=== PATIENT | male | born 1960 | race Caucasian/White ===

== ENCOUNTER 2025-02-23 02:50 | Day surgery (SDC) | payer MEDICAID, SELFPAY ==
[2025-02-14 14:35] VITALS: BMI 30.7
--- NOTE | 2025-02-14 14:42 | PC.NURSE ---
Report to the Outpatient Waiting Room, entrance under the green pavilion located off [facility], at time _0900_ on date _[id number]_. Planned Procedure Time: _1100_.? Time changes happen often and if your time is changed the preop area will call you the afternoon before. - You and your visitor will be asked to self-screen and do not enter if you have any COVID symptoms. Please call surgeon if you need to reschedule. - A mask is optional within the hospital at this time. May have clear liquids (water, carbonated beverages, clear teas, apple juice) until 3am prior to surgery with a maximum of 20 ounces. Nothing to drink after 3am. - No food from midnight until time of surgery and no smoking, or chewing tobacco (or any form of nicotine). No chewing gum, candy or mints. Take only the following medications with a SIP of water on the morning of surgery: ___None____ DO NOT STOP ANY OF YOUR OTHER PRESCRIPTION MEDICATIONS PRIOR TO SURGERY EXCEPT THE FOLLOWING Hold all vitamins and supplements for 3 days per anesthesiologist. Medications to discontinue per physician Date to take last dose Please no make-up, nail azeri, hairspray, perfume, deodorant, or body powder the day of surgery.? No jewelry (including any body piercings) or valuables the day of surgery, leave them at home.? Please take a shower or bath the night before, or the morning of, surgery with an antibacterial soap.? Wear comfortable, loose fitting clothing.? - Jewelry must be removed prior to entering the operating room.? Rings and piercings that are not removed may be cut off. - The hospital will not accept responsibility for valuables.? - Please leave all valuables, including medications, at home the day of surgery. If you are going home after surgery, a licensed wheelchair van driver must drive you home.? - NO public transportation without another adult if you receive anesthesia. - We recommend that an adult stay with you for 24 hours following discharge. - We also recommend that you do not drive, make important decision, drink alcoholic beverages, or take any drugs that were not prescribed by your health care provider for at least 24 hours after your discharge time. Follow any additional instructions given to you from your surgeon. Telephone instructions given to __Phan__and asked if any additional questions and then verbalized understanding. Patient advised to call surgeon office or pre surgery nurse liaison [phone] if any additional questions.
[2025-02-23] VITALS (8 sets, daily range): BP systolic 124–142; BP diastolic 72–88; PULSE 56–68; RESP 12–18; TEMP 36.4–36.9; O2SAT 94–98; BMI 30.7
--- NOTE | 2025-02-23 06:56 | WPDHPUPDATE1 ---
History and Physical Update Update Date/Time: 02/23/25 06:56 Patient seen and examined in pre-operative holding area. No interval change in medical history or symptoms. Patient recalls previous discussion of benefits and alternatives to procedure. Continues to desire to proceed with excision nasal lesion and full thickness skin graft from right arm. Reviewed procedure, post-op expectations and risks including but not limited to bleeding, infection,undesireable cosmetic appearance, partial/total graft loss, incomplete resection or recurrence, donor site complications. I discussed the possible use of assistants and their participation in the case. Patient stated understanding and signed the consent form wishing to proceed.
--- NOTE | 2025-02-23 06:57 | P.HP_ITS ---
History of Present Illness History of Present Illness Chief complaint: neoplasm of uncert behavior of skin Narrative: Patient seen and examined in pre-operative holding area. No interval change in medical history or symptoms. Patient recalls previous discussion of benefits and alternatives to procedure. Continues to desire to proceed with excision nasal lesion and full thickness skin graft from right arm. Reviewed procedure, post- op expectations and risks including but not limited to bleeding, infection,u ndesireable cosmetic appearance, partial/total graft loss, incomplete resection or recurrence, donor site complications. I discussed the possible use of assistants and their participation in the case. Patient stated understanding and signed the consent form wishing to proceed. Review of Systems Review of Systems: All systems reviewed & are unremarkable except as noted in HPI and below PMFSH Surgical History Surgical History (Updated 02/22/25 @ 14:41 by Elio Swann, ) History of cholecystectomy Social History Social History (System 02/11/25 @ 08:28 by Eric Thayer) Smoking packs per day: 1 Smoking cigarettes per day: 20.0 Years smoked: 43 Smoking pack-years: 43.00 Smoking status: Current every day smoker Tobacco type: cigarettes Alcohol intake: current Drinks per week: 42 Living arrangements: with family Meds Home Medications and Allergies Home Medications ?Medication ?Instructions ?Recorded ?Confirmed ?Type No Home Medications 02/14/25 02/14/25 History Allergies Allergy/AdvReac Type Severity Reaction Status Date / Time No Known Allergies Allergy Verified 02/23/25 09:45 Exam Narrative: unchanged Assessment and Plan Assessment and plan (1) Neoplasm of uncertain behavior of skin: Code(s): D48.5 - Neoplasm of uncertain behavior of skin Status: Acute Assessment and Plan: cont as above
--- NOTE | 2025-02-23 06:57 | W.PM.PROC2 ---
Procedure Note - Detailed Date of Procedure 02/23/25 Pre-op Diagnosis neoplasm of uncert behavior of skin Post-op Diagnosis Same Procedure Performed excision nasal lesion(squamous cell) and full thickness skin graft Surgeon Mariely Harley MD Technical Administrative Assistant jesus angeles pa-c Anesthesia General Description of Procedure Patient was seen in the preoperative holding area where the consent form was signed and the nose and right arm were marked. Patient was taken back to the operating room on the stretcher in the supine position. Time-out was performed with Anesthesia, surgeon, and staff agreeing on patient's name, site, and surgery to be performed. SCDs were placed on the lower extremities and inflated. Antibiotics were given IV. After general anesthesia was administered the nose and right inner arm was prepped and draped in usual sterile fashion. I injected 14 cc of 1% lidocaine with epinephrine and 0.5% Marcaine plain for local anesthesia for the nose as well as the right inner arm donor site. I measured 4 mm margin from the lesions edge and proceeded with excision of this lesion down to and just above the periosteum of the nasal bones and lower lateral cartilages. This was done with Bovie cautery and scalpel. This specimen was marked and sent for pathology. I irrigated with normal saline. Hemostasis with Bovie cautery. The defect measured 4.5 by 5 cm. This graft shape and measurement was transposed to the right inner arm where I proceeded with making an elliptical incision around the marked site through skin and dermis with 15 blade scalpel. Bovie cautery was used to elevate the skin flap and subcutaneous tissue. After undermining of the skin flaps this was closed with 3-0 Vicryl for dermis and 4-0 Monocryl for subcuticular closure. Next I proceeded with using Iris scissor to deep fat the skin graft down to thin layer of dermis. This graft was then sewn in to the defect initially using 4-0 nylon sutures at various cardinal points. The graft was trimmed with iris scissors as appropriate. 4-0 chromic was then used to complete the suturing of the graft to the wound edge. 4-0 chromic was used to create mattress suture of the graft going into both nostrils and this mattress suture was sewn down over a small roll of Xeroform help improve contour of the graft on the right and left nasal sidewall. Next a Xeroform and cotton ball bolster was fashioned to fit the entire graft and sewn in place with the previously placed nylon sutures. A dressing of 4x4s and silk tape was then applied. The patient was awakened from anesthesia and transferred to the recovery room in stable condition. Complications: None Estimated blood loss: 15 cc Disposition: Patient tolerated the procedure well and will go home later today Jesus Angeles PA-C was essential for positioning, retraction, cosure and dressing placement [facility] [place] [facility] [place] Billing Surgery - Charge Forward: Surgery Billing ([id number] same for jesus adding )
--- NOTE | 2025-02-23 08:07 | P.PNAN_ITS ---
Anes - Initial Pre Proc Eval Procedure: Operation Date: 02/23/25 11:00 Proposed Procedures p Excision Nasal Lesion with Full Thickness Skin Graft - Mariely Harley MD Date/Time: 02/23/25 08:07 Surgeon: Mariely Harley MD Pre Op Diagnosis: neoplasm of uncert behavior of skin Patient Data Age: 64 Gender: M Height: 1.8 m Weight: 100 kg Allergies Allergy/AdvReac Type Severity Reaction Status Date / Time No Known Allergies Allergy Verified 02/23/25 09:45 Home Medications ?Medication ?Instructions ?Recorded ?Confirmed ?Type cephalexin 500 mg capsule 500 mg PO Q12H #14 caps 02/23/25 Rx hydrocodone 5 mg-acetaminophen 325 1 tablet PO Q6H PRN pain #12 tabs 02/23/25 Rx mg tablet Patient hx anesthesia problems: none Family hx anesthesia problems: none Results Review: All pre-operative results and documents have been reviewed as part of the pre- operative evaluation. [facility] Surgical History Surgical History (Updated 02/22/25 @ 14:41 by Elio Swann DO) History of cholecystectomy Social History Social History (System 02/11/25 @ 08:28 by Eric Thayer) Smoking packs per day: 1 Smoking cigarettes per day: 20.0 Years smoked: 43 Smoking pack-years: 43.00 Smoking status: Current every day smoker Tobacco type: cigarettes Alcohol intake: current Drinks per week: 42 Living arrangements: with family Anes - Eval Final PreProcedure Day of Procedure 02/23/25 08:07 Patient weight: obese Heart: regular rate and rhythm Lungs: clear to auscultation Airway: Mallampati scale class III Neurological: alert and oriented Last oral intake: >/= 8 hours ASA classification: III Emergent: no Anesthetic plan: proceed Anesthesia type and monitoring: general LMA and standard monitoring Results Review: All pre-operative results and documents have been reviewed as part of the pre- operative evaluation. Informed Consent: The patient's anesthetic plan and its attendant risks and benefits were discussed with the patient/family/POA. Questions were solicited and answers provided to the satisfaction of the patient/family/POA.
[2025-02-23] MEDS: LACTATED RINGERS 1,000 ML 30 ML IV CONT (10:00)
[2025-02-23] MEDS: ACETAMINOPHEN 500 MG TABLET 1000 MG PO (10:03)
[2025-02-23] MEDS: ceFAZolin 2 GM in SODIUM CHLORIDE 0.9% IV 50 ML 100 ML IVPB (11:56)
[2025-02-23] MEDS: LIDO 1%/EPINEPHRINE 1:100,000 50 ML VIAL 20 ML INFILTRATE (12:19)
[2025-02-23] MEDS: BALANCED SALT SOLN OPHTH IRRIG 30 ML BTL 5 ML EACH EYE (12:23)
--- NOTE | 2025-02-23 12:24 | S_PTH ---
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
== END 2025-02-23 14:45 | disposition home or self-care (01) ==
PROVIDERS: Visit Provider Plastic Surgery
PROC: (CPT 11646; principal; 2025-02-23 11:00)
DX: C44.321 Squamous cell carcinoma of skin of nose (principal); F17.210 Nicotine dependence, cigarettes, uncomplicated; E66.9 Obesity, unspecified; Z68.30 Body mass index [BMI] 30.0-30.9, adult; Z79.891 Long term (current) use of opiate analgesic; Z90.49 Acquired absence of other specified parts of digestive tract
CPT/HCPCS: 11646; 15260; 15261; 88305; J0690; A9270; J1100; J2003; J2004; J2405; J2704; J3010; J7120